=== PATIENT | male | born 1960 | race African-American/Black ===

== ENCOUNTER 2017-10-30 06:23 | Day surgery (SDC) | payer OTHER ==
[2017-10-26 18:03] VITALS: BMI 29.5
[2017-10-30] MEDS ORDERED: LIDOCAINE HCL/PF 2% SDV 5ML VIAL ONE (06:32)
[2017-10-30] MEDS ORDERED: SUCCINYLCHOLINE CHLORIDE 200 MG/10 ML VIAL ONE (06:32)
[2017-10-30] MEDS ORDERED: DEXAMETHASONE SOD PHOSPHATE 4 MG/1 ML VIAL ONE (06:34)
[2017-10-30] MEDS ORDERED: KETOROLAC TROMETHAMINE 30 MG/1 ML VIAL ONE (06:34)
[2017-10-30] MEDS ORDERED: ONDANSETRON 4 MG/2 ML VIAL ONE ×2 (06:34→09:13)
[2017-10-30] MEDS ORDERED: EPINEPHrine 1:1,000 1 MG/1 ML - 30ML VIAL (INJECTION) ONE (07:20)
[2017-10-30] MEDS ORDERED: BUPIVACAINE HCL/PF 2.5 MG/ML - 30 ML VIAL IJ ONE (07:20)
[2017-10-30] MEDS ORDERED: ONDANSETRON 4 MG/2 ML VIAL IVPUSH PRN (07:34)
[2017-10-30] MEDS ORDERED: MIDAZOLAM HCL 2 MG/2 ML SINGLE DOSE VIAL ONE (07:42)
[2017-10-30] MEDS ORDERED: LACTATED RINGERS SOLUTION 1,000 ML IV SCH (07:45)
[2017-10-30] MEDS ORDERED: PROPOFOL 20 ML ONE ×2 (08:18)
[2017-10-30] MEDS ORDERED: ceFAZolin SODIUM 1 GM VIAL ONE (08:24)
[2017-10-30] MEDS ORDERED: BUPIVACAINE HCL/PF 0.25% (2.5MG/ML) 10 ML VIAL IJ ONE (08:56)
[2017-10-30] MEDS ORDERED: oxyCODONE HCL 5 MG TABLET ONE (10:28)
[2017-10-30 11:34] VITALS: BP 127/77; PULSE 48; TEMP 97.5
--- NOTE | 2017-11-01 20:28 | OP ---
DATE OF OPERATION: 10/30/2017 LOCATION: [facility]. SURGEON: Nickolas Carter MD DRAWING KILN SUPERVISOR: MAYRA Shell PREOPERATIVE DIAGNOSES: 1. Right knee medial and lateral meniscal tear. 2. Right knee cartilage injury. 3. Right knee synovitis. POSTOPERATIVE DIAGNOSES: 1. Right knee medial and lateral meniscal tear. 2. Right knee cartilage injury. 3. Right knee synovitis. PROCEDURE: 1. Right knee arthroscopy, partial meniscectomy, medial and lateral meniscus, CPT code 25701. 2. Right knee arthroscopy with chondroplasty and abrasoplasty, CPT code 31769. 3. Right knee arthroscopy with synovectomy including removal of medial plica, CPT code 20146. FINDINGS: 1. Medial meniscus body and posterior horn tear. 2. Lateral meniscus posterior horn tear. 3. Synovitis, patellofemoral, medial and lateral notch area. 4. Central grade 2 to 4 cartilage injury, central medial femoral condyle, with large cartilage flap. 5. ACL and PCL intact. 6. Anterior grade 2 cartilage injury, lateral tibial plateau. 7. Central grade 2 to 4 cartilage injury, patellofemoral trochlea; grade 2 changes, patella. PROCEDURE: Informed consent was obtained. The patient came to the operating room, where the lower extremity was prepped and draped in a sterile fashion. A tourniquet was placed on the upper thigh, but not inflated. Using standard arthroscopic technique, a lateral incision and portal was made to allow for introduction of the camera into the suprapatellar bursa. This was then taken to the medial joint line, where under direct visualization, a medial incision and portal was made. Excessive synovium noted in the medial, lateral and patellofemoral and notch area was removed by an upbiter, shaver and Bovie cautery. This was found to bring in inflammatory tissue into the joint surface, a source of pain and dysfunction. Probing of the medial and lateral meniscus found tears, as described in the findings. These were removed with the upbiter and shaver and taken back to a stable rim. Grade 2 to 3 degenerative changes were treated with a chondroplasty, removing all flaking surfaces with low-setting Bovie along the periphery to prevent further flaking. Grade 4 changes, as noted, were treated with an abrasoplasty, creating a bleeding surface at the bone/cartilage interface. Aggressive debridement with shaver/mushtaq created bleeding surface. Micro fracture also done when indicated in findings All areas of the knee were once again reexamined. The knee was then drained and a single suture was placed in all portals. A sterile dressing was placed and the patient was transferred to the recovery room without complication. NICKOLAS CARTER M.D. [id number]
--- NOTE | 2017-11-03 16:32 | PATH ---
Surgical Pathology Report Patient Name: KANE ESTRADA [facility]. Rec. #: [id number] /Age/Gender: 1960 (Age: 57) / M Account: [id number] Location: [facility] AMBULATORY Taken: 10/30/2017 Received: 10/30/2017 Reported: 11/03/2017 Physicians: Nickolas Norwood M.D. Specimen(s) Received RIGHT KNEE SHAVINGS Clinical History Right knee internal derangement Final Diagnosis RIGHT KNEE, SHAVINGS: FRAGMENTS OF CARTILAGE, SYNOVIAL TISSUE, AND FIBROCONNECTIVE TISSUE WITH DEGENERATIVE CHANGE. Electronically Signed Mee Dawn M.D. Gross Description Received in formalin, labeled "right knee shavings," is a 3.0 x 2.3 x 0.3 cm. aggregate of roca-yellow soft tissue fragments. A apparel trimmings sales representative portion is submitted in one cassette. /11/02/201711/02/2017
== END 2017-10-30 11:15 | disposition home or self-care (01) ==
LOC: FASU 06:23
PROVIDERS: ATTEND Orthopaedic Surgery
PROC: 0SBC4ZZ Excision of Right Knee Joint, Percutaneous Endoscopic Approach (ICD-10-PCS; 2017-10-30)
PROC: 0SBC4ZZ Excision of Right Knee Joint, Percutaneous Endoscopic Approach (ICD-10-PCS; 2017-10-30)
PROC: 0SBC4ZZ Excision of Right Knee Joint, Percutaneous Endoscopic Approach (ICD-10-PCS; principal; 2017-10-30 08:32)
DX: S83.241A Other tear of medial meniscus, current injury, right knee, initial encounter (principal); S83.281A Other tear of lateral meniscus, current injury, right knee, initial encounter; S83.8X1A Sprain of other specified parts of right knee, initial encounter; M65.861 Other synovitis and tenosynovitis, right lower leg; X58.XXXA Exposure to other specified factors, initial encounter
CPT/HCPCS: 88304-TC; 94760